=== PATIENT | female | born 1945 | race Caucasian/White ===

== ENCOUNTER 2019-02-10 13:36 | Outpatient (CLI) | payer MEDICARE ==
[2019-02-10 14:59] LABS: #Eosinphils 0.1 thou/uL (0.0-0.7); #Lymphocytes 1.3 thou/uL (1.20-3.40); #Monocytes 0.7 thou/uL (0.11-0.59); #Neutrophils 4.1 thou/uL (1.40-6.50); %Basophils 0.3 % (0.0-1.0); %Eosinophils 1.6 % (0.0-10.0); %Lymphocytes 21.2 % (21.0-51.0); %Monocytes 10.6 % (0.0-10.0); %Neutrophils 66.3 % (42.0-75.0); Hemoglobin 14.4 g/dL (12.0-16.0); Mean Corpuscular HGB CONC 35.4 g/dL (32.0-36.0); Mean Corpuscular Hemoglobin 32.9 pg (27.0-31.0); Mean Corpuscular Volume 92.7 fL (78.0-98.0); Mean Platelet Volume 6.7 fL (7.4-10.4); Platelet Count 367 thou/uL (130-400); RBC Distribution Width 11.8 % (11.5-14.5); Red Blood Cell (RBC) Count 4.39 mill/uL (4.20-5.40); White Blood Cell (WBC) Count 6.2 thou/uL (4.8-10.8)
[2019-02-10 15:18] LABS: Anion Gap 16 mmol/L (10-20); BUN (Urea Nitrogen) 8 mg/dL (9.8-20.1); Calc. Creatinine Clearance 0 mL/min (70-130); Calcium 9.4 mg/dL (7.8-10.44); Carbon Dioxide 24 mmol/L (23-31); Chloride 95 mmol/L (98-107); Estimated GFR-MDRD 71; Glucose 93 mg/dL (83-110); Potassium 4.7 mmol/L (3.5-5.1); Sodium 130 mmol/L (136-145)
[2019-02-10 15:29] LABS: Bacteria/HPF 4+ HPF (None Seen); Bilirubin Negative (Negative); Blood, Urine Negative (Negative); Clarity Turbid (Clear); Glucose, Urine (Dipstick) Normal (Negative); Leukocyte 500 Leu/uL (Negative); Nitrite 1+ (Negative); Protein, Urine (Dipstick) Negative (Neg-Trace); Urobilinogen Normal mg/dL (Less than 2); WBC/HPF Greater than 50 HPF (0-3)
--- NOTE | 2019-02-11 23:26 | EKG ---
Test Reason : Blood Pressure : / mmHG Vent. Rate : 082 BPM Atrial Rate : 082 BPM P-R Int : 166 ms QRS Dur : 082 ms QT Int : 396 ms P-R-T Axes : 065 066 063 degrees QTc Int : 462 ms Normal sinus rhythm Possible Anterior infarct , age undetermined Abnormal ECG No previous ECGs available Confirmed by Nicole HART ([id number]) on 02/11/2019 11:25:45 PM Referred By: RAMSES Confirmed By:Nicole HART
== END 2019-02-10 13:37 | disposition home or self-care (01) ==
LOC: LABBT 13:36
PROVIDERS: ATTEND Orthopaedic Surgery Hand Surgery
DX: Z01.818 Encounter for other preprocedural examination (principal); M72.0 Palmar fascial fibromatosis [Dupuytren]
CPT/HCPCS: 80048; 81001; 85025; 93005; 93010

== ENCOUNTER 2019-02-12 06:13 | Inpatient (IN) | payer MEDICARE ==
[2019-02-12] MEDS ORDERED: Fentanyl 100 MCG/2 ML VIAL ONE ×2 (08:52→14:22)
[2019-02-12] MEDS ORDERED: Bacitracin Zinc Ointment 30 gm TUBE ONE (09:59)
[2019-02-12] MEDS ORDERED: Sodium Chloride 0.9% 10 ML ONE (09:59)
[2019-02-12] MEDS ORDERED: Betamet Acet/Betamet Na Ph 30 MG/5 ML VIAL ONE (09:59)
[2019-02-12] MEDS ORDERED: Bupivacaine PF 0.5% 30 ML VIAL ONE (09:59)
[2019-02-12] MEDS ORDERED: Heparin 10,000 UNITS/1 ML VIAL ONE ×4 (12:33→13:43)
[2019-02-12] MEDS ORDERED: Lidocaine 2% PF 5 ML VIAL ONE ×3 (12:33→13:43)
[2019-02-12] MEDS ORDERED: Hetastarch 6% 500 ML 500 ML ONE (12:33)
[2019-02-12] MEDS ORDERED: SODIUM CHLORIDE 0.9% FS SCH (13:00)
[2019-02-12] MEDS ORDERED: HEPARIN FS SCH (13:00)
[2019-02-12] MEDS ORDERED: Phenylephrine HCL 10 MG/ML VIAL ONE (16:05)
--- NOTE | 2019-02-12 16:19 | RAD ---
Right hand 2 views HISTORY: Evaluate for foreign body. FINDINGS: Scattered mild degenerative changes. Tiny linear ossific fragment just lateral to the first carpometacarpal joint may represent a small avulsion or fragmented osteophyte. No acute fracture or dislocation are apparent. No radiopaque/metallic foreign bodies are evident.
[2019-02-12] MEDS ORDERED: Heparin 25,000 units/D5W 500 ML IV SCH (16:45)
[2019-02-12] MEDS ORDERED: Ondansetron PF 4 MG/2 ML Vial IV PRN (16:52)
[2019-02-12] MEDS ORDERED: traMADol HCl 50 MG TAB PO PRN (16:52)
[2019-02-12] MEDS ORDERED: Acetaminophen 325 MG TAB PO PRN (16:52)
[2019-02-12] MEDS ORDERED: Fentanyl 100 MCG/2 ML VIAL SLOW IVP PRN (16:52)
[2019-02-12] MEDS ORDERED: HYDROcodone/Acetaminophen 10/325 mg Tablet PO PRN (16:52)
[2019-02-12] MEDS ORDERED: Promethazine HCl 25 MG/ML VIAL IM PRN (16:52)
[2019-02-12] MEDS ORDERED: Morphine 2 MG/ML SYRINGE IVP PRN (16:52)
[2019-02-12] MEDS ORDERED: Milk Of Magnesia 30 ML UDCUP PO PRN (16:52)
[2019-02-12] MEDS ORDERED: Communication Order-Pharmacy FS SCH (17:00)
[2019-02-12] MEDS ORDERED: TETANUS AND DIPHTHERIA TOX/PF 0.5 ML DISP.SYRIN IM SCH (17:00)
[2019-02-12] MEDS ORDERED: HYDROcodone/Acetaminophen 5/325 mg Tablet ONE (17:07)
[2019-02-12] MEDS ORDERED: Meperidine HCl/PF 25 MG/ML VIAL IM PRN (17:09)
[2019-02-12 20:05] LABS: #Eosinphils 0.1 thou/uL (0.0-0.7); #Lymphocytes 1.4 thou/uL (1.20-3.40); #Neutrophils 15.9 thou/uL (1.40-6.50); %Basophils 0.1 % (0.0-1.0); %Eosinophils 0.4 % (0.0-10.0); %Lymphocytes 7.7 % (21.0-51.0); %Monocytes 5.6 % (0.0-10.0); %Neutrophils 86.2 % (42.0-75.0); Hemoglobin 10.5 g/dL (12.0-16.0); Mean Corpuscular HGB CONC 34.5 g/dL (32.0-36.0); Mean Corpuscular Hemoglobin 32.6 pg (27.0-31.0); Mean Corpuscular Volume 94.2 fL (78.0-98.0); Mean Platelet Volume 6.6 fL (7.4-10.4); Platelet Count 301 thou/uL (130-400); Red Blood Cell (RBC) Count 3.23 mill/uL (4.20-5.40); White Blood Cell (WBC) Count 18.4 thou/uL (4.8-10.8)
[2019-02-12] MEDS ORDERED: Hetastarch 6% 500 ML 500 ML IVPB SCH (20:15)
[2019-02-12] MEDS: Aspirin 81 mg Enteric Coated Tablet PO SCH (21:16)
[2019-02-12] MEDS: Vancomycin HCl 1 GM in Premix Bag 1 BAG IVPB SCH (21:16)
--- NOTE | 2019-02-12 23:32 | OP ---
DATE OF PROCEDURE: 02/12/2019 ANESTHESIA: General. LMA technique converted to endotracheal tube. PREOPERATIVE DIAGNOSIS: Dupuytren's cord, severe involving proximal interphalangeal joint and skin, small finger and skin, A1 ariana of the ring finger. POSTOPERATIVE DIAGNOSES: 1. Dupuytren's cord, severe involving proximal interphalangeal joint and skin, small finger and skin, A1 ariana of the ring finger. 2. Arterial spasm to both the radial and ulnar digital artery. 3. Clot with spasm, ulnar digital artery. PROCEDURE PERFORMED: 1. Subtotal palmar fasciectomy, right. 2. Right small finger, ring finger, Dupuytren's cord release. 3. Right small finger, ring finger, digital nerve neuroplasty, both nerves on the small and just the ulnar nerve on the ring. 4. Right small finger ulnar digital artery endarterectomy with clot removal and digital artery repair. 5. Microscopic synovectomy, radial and ulnar digital artery of small finger, right. ESTIMATED BLOOD LOSS: Approximately 100 mL. TOURNIQUET TIME: 80 minutes. FINDINGS: Clot in ulnar digital artery at the A1 ariana level precluding flow and spasm at both. Large cord PIP joint, skin of small finger, skin of ring finger. Observation volunteer and premed student in the room. MICROSCOPE USED: Yes. DESCRIPTION OF PROCEDURE: After successful general endotracheal anesthesia, limb prepped and draped. A time-out was done appropriately. We then outlined the zigzag incision to approach the entire small finger and ulnar aspect of the ring finger. After exsanguination of limb, inflated the tourniquet to 250 mmHg pressure. The incision was carried through skin and subcutaneous tissue only and then, we used blunt dissection with a small Crile around all neurovascular bundles, visualizing the ulnar and radial artery nerve to the small finger and ulnar neurovascular bundle to ring finger. It was found that it was a sharp demarcation just proximal to the A1 ariana of the neurovascular bundle where it went from its normal position to be brought all the way across the midline, but this large cord is across the A1 ariana. Next, we then did the neuroplasty completely from the entire length of wound, stopping just distal to the PIP joint on the radial aspect and slightly more distal on the ulnar aspect. We then did the same neurovascular bundle/neuroplasty on the ulnar side of the ring finger, began to separate the skin lesions, which were multiple on the ring finger side, A1 ariana connection on the ring finger portion and then the entire mass from the small finger side. We again used blunt dissection around the neurovascular bundles. Once, we had elevated the mass, we had 1 small 3 mm skin opening at the proximal palm as this incision extended proximally almost to the level of the transverse carpal ligament, distal edge. We released the tourniquet. We noticed that immediately there was a wide ring finger ulnar aspect and the entire small finger distal to the PIP joint. We then used measures locally such as warm normal saline, we continued to the Daniel solution (heparin, dextran and 2% xylocaine with epinephrine, but here there was no dextran, so we substituted Hespan for the dextran) and this did not restore circulation in the small finger, but did restore in the ring finger. After approximately 30 minutes of these measures, we then brought the microscope in to the field and did a complete dissection of the radial and ulnar neurovascular bundle from most proximal to distal part of wound. On the radial side, there was no visible clot. We suspected spasm and there was no laceration. On the ulnar side, there was an area approximately 2 mm, appeared to have some clot, proximal to A1 ariana and there was also spasm. For this reason, we performed on both arteries individually under microscope, a sympathectomy removing the sheath through its entire length. Once this was done, pulsatile flow was established, but the digit was only partially pink, so we decided to bolus with heparin, which was done for the total of 10,000 initially, and we performed under microscope magnification (all of the above procedures that were neurovascular were done under magnification of microscope) and we found the clot, released it, which required a 2 mm resection, because the vessel was only holding on by adventitia. We then brought appropriate clamps on the field, used a long 32-gauge needle to remove the clot from the proximal portion of this ulnar artery area and we had pulsatile flow. We then used a double clamp and a back wall first technique using six sutures to repair the digital artery. At that point, the finger became pink, had 1.5 second refill, it was 1 second at the other digits and we prepared to remove the dressing. We then slowly found a position of about 60 degree flexion of the PIP and 20 degree flexion of the MP joint, which was most consistent with excellent circulation and splinted the patient in this position with only a light amount of Bacitracin, a bulky dressing without constricting the digit or the 4th web space and a dorsal block splint with the MP joint at 80 degrees, so that with 2 cm of splint distal to the digits, so if the patient sleeps with the digits down/pronate, it will not compress the operative site digit. The patient then went to recovery room, where we transitioned from a temperature of 60 degrees to that of 72 and digit is pink, 1 second refill, almost the same color as the others. PLAN: Plan would be to admit the patient, I immediately called the patient's daughter who I did not reach, but left a message witnessed by Ms. Meera auguste the charge nurse in the day stay to inform of what happened and the plan that the patient did not stay in the hospital approximately 40 hours of vasoactive substances to allow for the spasms to slowly be decreasing, this would be heparin primarily. Job ID: [id number]
[2019-02-13 01:23] LABS: #Lymphocytes 0.9 thou/uL (1.20-3.40); #Monocytes 0.6 thou/uL (0.11-0.59); #Neutrophils 9.2 thou/uL (1.40-6.50); %Basophils 0.3 % (0.0-1.0); %Eosinophils 0.2 % (0.0-10.0); %Lymphocytes 8.2 % (21.0-51.0); %Monocytes 5.7 % (0.0-10.0); %Neutrophils 85.5 % (42.0-75.0); Hemoglobin 8.3 g/dL (12.0-16.0); Mean Corpuscular HGB CONC 34.5 g/dL (32.0-36.0); Mean Corpuscular Hemoglobin 32.9 pg (27.0-31.0); Mean Corpuscular Volume 95.5 fL (78.0-98.0); Mean Platelet Volume 6.5 fL (7.4-10.4); Platelet Count 249 thou/uL (130-400); RBC Distribution Width 11.9 % (11.5-14.5); Red Blood Cell (RBC) Count 2.53 mill/uL (4.20-5.40); White Blood Cell (WBC) Count 10.7 thou/uL (4.8-10.8)
[2019-02-13 06:19] VITALS: BMI 25.3
[2019-02-13] MEDS ORDERED: FLU VACC TS2019-20(65YR UP)/PF 180 MCG/0.5 ML SYRINGE IM ONE (09:00)
[2019-02-13] MEDS: Aspirin 81 mg Enteric Coated Tablet PO SCH ×2 (09:29→20:32)
[2019-02-13] MEDS: Aspirin 325 mg Enteric Coated Tablet PO SCH (09:30)
[2019-02-13] MEDS: Vancomycin HCl 1 GM in Premix Bag 1 BAG IVPB SCH ×2 (09:30→20:32)
[2019-02-13 11:07] LABS: #Eosinphils 0.1 thou/uL (0.0-0.7); #Monocytes 0.7 thou/uL (0.11-0.59); #Neutrophils 4.1 thou/uL (1.40-6.50); %Basophils 0.5 % (0.0-1.0); %Eosinophils 1.7 % (0.0-10.0); %Lymphocytes 17.3 % (21.0-51.0); %Monocytes 10.9 % (0.0-10.0); %Neutrophils 69.5 % (42.0-75.0); Hemoglobin 9.7 g/dL (12.0-16.0); Mean Corpuscular HGB CONC 34.5 g/dL (32.0-36.0); Mean Corpuscular Hemoglobin 32.6 pg (27.0-31.0); Mean Corpuscular Volume 94.5 fL (78.0-98.0); Mean Platelet Volume 6.3 fL (7.4-10.4); Platelet Count 215 thou/uL (130-400); Red Blood Cell (RBC) Count 2.99 mill/uL (4.20-5.40); White Blood Cell (WBC) Count 5.9 thou/uL (4.8-10.8)
[2019-02-13 11:18] LABS: INR-International Normal Ratio 1.1; PTT 28.1 SEC (22.9-36.1); Prothrombin Time 13.8 SEC (12.0-14.7)
[2019-02-13] MEDS ORDERED: Ferrous Gluconate 324 MG TAB PO SCH (14:30)
[2019-02-13] MEDS: HYDROcodone/Acetaminophen 5/325 mg Tablet PO PRN ×2 (16:38→20:33)
[2019-02-14] MEDS ORDERED: Ferrous Gluconate 324 MG TAB PO SCH (08:00)
[2019-02-14] MEDS: Aspirin 325 mg Enteric Coated Tablet PO SCH (09:00)
[2019-02-14] MEDS: Aspirin 81 mg Enteric Coated Tablet PO SCH (09:00)
[2019-02-14] MEDS: HYDROcodone/Acetaminophen 5/325 mg Tablet PO PRN (09:00)
[2019-02-14 09:27] LABS: Vancomycin, Trough 15.8 ug/mL
[2019-02-14] MEDS: Vancomycin HCl 1 GM in Premix Bag 1 BAG IVPB SCH (10:15)
[2019-02-14 15:40] VITALS: BP 98/60; TEMP 98.1
== END 2019-02-14 16:54 | disposition home or self-care (01) | DRG 513 ==
LOC: EDSEX → SDC 06:13 → SURG A 18:51
PROVIDERS: ADMIT Orthopaedic Surgery Hand Surgery; ATTEND Orthopaedic Surgery Hand Surgery
PROC: 03CB0ZZ Extirpation of Matter from Right Radial Artery, Open Approach (ICD-10-PCS; principal; 2019-02-12)
PROC: 0RBW0ZZ Excision of Right Finger Phalangeal Joint, Open Approach (ICD-10-PCS; 2019-02-12)
PROC: 01Q40ZZ Repair Ulnar Nerve, Open Approach (ICD-10-PCS; 2019-02-12)
PROC: 0JNJ0ZZ Release Right Hand Subcutaneous Tissue and Fascia, Open Approach (ICD-10-PCS; 2019-02-12)
DX: M72.0 Palmar fascial fibromatosis [Dupuytren] (principal); I74.2 Embolism and thrombosis of arteries of the upper extremities; I73.9 Peripheral vascular disease, unspecified; E78.5 Hyperlipidemia, unspecified; J44.9 Chronic obstructive pulmonary disease, unspecified; Z87.891 Personal history of nicotine dependence
CPT/HCPCS: 36415; 36430; 80048; 80202; 81001; 85025; 85610; 85730; 86850; 86900; 86901; 88304; 90471; 90662; 93005; 93010; G0008; J0690; J0702; J1644; J2001; J2370; J3010; J3370; J3490; J7050; P9016; S0020

== ENCOUNTER 2020-09-12 10:50 | Outpatient (CLI) | payer MEDICARE | END 2020-09-12 10:51 | disposition home or self-care (01) | LOC: PET 10:50 | PROVIDERS: ATTEND Family Medicine | DX: R93.89 Abnormal findings on diagnostic imaging of other specified body structures (principal); R91.1 Solitary pulmonary nodule | CPT/HCPCS: 78815; A9552 ==

== ENCOUNTER 2021-01-24 12:07 | Outpatient (CLI) | payer MEDICARE ==
[~2021-01-24 12:07] MED LIST: Iopamidol-370 76% 500 ML 1 ML ONE
== END 2021-01-24 12:08 | disposition home or self-care (01) ==
LOC: BICCT 12:07
PROVIDERS: ATTEND Family Medicine
DX: R91.8 Other nonspecific abnormal finding of lung field (principal)
CPT/HCPCS: 71260; 82565; Q9967